=== PATIENT | female | born 1985 | race Caucasian/White ===

== ENCOUNTER 2023-09-25 23:11 | Emergency (ER) | payer OTHER, MEDICAID ==
[~2023-09-25] VITALS: Ht 167.6 cm; Wt 120.2 kg
[2023-09-25 23:18] VITALS: BP_SYST 149; PULSE 89; RESP 18; TEMP 97.8; O2SAT 98
== END 2023-09-26 00:24 | disposition left against medical advice (07) ==
LOC: SED 23:11
DX: M25.561 Pain in right knee (principal); Z88.1 Allergy status to other antibiotic agents; Z79.899 Other long term (current) drug therapy
CPT/HCPCS: 99281